=== PATIENT | female | born 1980 | race Caucasian/White ===

== ENCOUNTER 2016-09-07 11:45 | Outpatient (CLI) | payer MEDICAID ==
[2016-10-07] MEDS ORDERED: COLACE-DPS100 MG PO (15:17)
[2016-10-07] MEDS ORDERED: ASA CHILDREN'S81 MG PO (15:17)
[2016-10-07] MEDS ORDERED: PRENATAL VITAM1 EAC6 PO (15:17)
[2016-10-07] MEDS ORDERED: PROCARDIA XL60 MG PO (15:17)
[2016-10-07] MEDS ORDERED: MOTRIN-DPS800 MG PO (15:18)
[2016-10-07] MEDS ORDERED: NIPPLECREAM TP (15:18)
[2016-10-07] MEDS ORDERED: PERCOCET 5 DPS1 TAB PO (15:18)
== END 2016-09-07 14:30 | disposition home or self-care (01) ==
LOC: BC 11:45 → 2LDRP 11:45 → BC 14:30
DX: O16.3 Unspecified maternal hypertension, third trimester (principal); Z3A.32 32 weeks gestation of pregnancy

== ENCOUNTER 2016-10-01 17:00 | Inpatient (IN) | payer MEDICAID ==
[2016-10-07] MEDS ORDERED: PRENATAL VITAM1 EAC6 PO (15:17)
[2016-10-07] MEDS ORDERED: ASA CHILDREN'S81 MG PO (15:17)
[2016-10-07] MEDS ORDERED: COLACE-DPS100 MG PO (15:17)
[2016-10-07] MEDS ORDERED: PROCARDIA XL60 MG PO (15:17)
[2016-10-07] MEDS ORDERED: PERCOCET 5 DPS1 TAB PO (15:18)
[2016-10-07] MEDS ORDERED: NIPPLECREAM TP (15:18)
[2016-10-07] MEDS ORDERED: MOTRIN-DPS800 MG PO (15:18)
== END 2016-10-06 11:10 | disposition home or self-care (01) | DRG 766 ==
DX: O10.02 Pre-existing essential hypertension complicating childbirth (principal); N73.6 Female pelvic peritoneal adhesions (postinfective); O99.89 Other specified diseases and conditions complicating pregnancy, childbirth and the puerperium; Z20.828 Contact with and (suspected) exposure to other viral communicable diseases; Z3A.35 35 weeks gestation of pregnancy; Z37.0 Single live birth